=== PATIENT | male | born 1995 | race Caucasian/White ===

== ENCOUNTER 2018-09-29 22:37 | Emergency (ER) | payer OTHER ==
[~2018-09-29] VITALS: Ht 177.8 cm; Wt 122.5 kg
[2018-09-29 22:44] VITALS: BP 161/81; Ht 177.8 cm; Wt 122.5 kg
== END 2018-09-30 00:23 | disposition home or self-care (01) ==
LOC: ED 22:37
DX: R21 Rash and other nonspecific skin eruption (principal); L29.9 Pruritus, unspecified

== ENCOUNTER 2019-01-02 21:40 | Emergency (ER) | payer OTHER ==
[~2019-01-02] VITALS: Ht 177.8 cm; Wt 114.8 kg
[2019-01-02 21:48] VITALS: Ht 177.8 cm; Wt 114.8 kg
[2019-01-02 22:56] VITALS: BP 148/83
== END 2019-01-02 22:57 | disposition home or self-care (01) ==
LOC: ED 21:40
DX: L03.116 Cellulitis of left lower limb (principal); R03.0 Elevated blood-pressure reading, without diagnosis of hypertension
CPT/HCPCS: J0696

== ENCOUNTER 2019-06-23 11:34 | Emergency (ER) | payer MEDICAID ==
[~2019-06-23] VITALS: Ht 177.8 cm; Wt 105.2 kg
[2019-06-23 11:46] VITALS: BP 132/76; Ht 177.8 cm; Wt 105.2 kg
== END 2019-06-23 16:09 | disposition home or self-care (01) ==
LOC: ED 11:34
DX: M54.5 Low back pain (principal); E66.01 Morbid (severe) obesity due to excess calories; F15.10 Other stimulant abuse, uncomplicated; Z68.33 Body mass index [BMI] 33.0-33.9, adult; X50.0XXA Overexertion from strenuous movement or load, initial encounter; Y93.89 Activity, other specified; Y92.89 Other specified places as the place of occurrence of the external cause; Y99.8 Other external cause status
CPT/HCPCS: J1100; J1885

== ENCOUNTER 2020-01-17 22:53 | Emergency (ER) | payer MEDICAID, SELFPAY ==
[~2020-01-17] VITALS: Ht 177.8 cm; Wt 108.9 kg
[2020-01-17 23:50] VITALS: Ht 177.8 cm; Wt 108.9 kg
[2020-01-18 01:21] VITALS: BP 110/78
== END 2020-01-18 01:21 | disposition home or self-care (01) ==
LOC: ED 22:53
DX: R30.0 Dysuria (principal); R39.198 Other difficulties with micturition; R50.9 Fever, unspecified; M79.10 Myalgia, unspecified site; R51 Headache; Z20.828 Contact with and (suspected) exposure to other viral communicable diseases
CPT/HCPCS: 87491; 87591; 87804; J0696; U0003-CS